=== PATIENT | male | born 1940 | race Native Hawaiian/Other Pacific Islander ===

== ENCOUNTER 2019-08-16 15:53 | Emergency (ER) | payer MEDICARE, OTHER ==
[~2019-08-16] VITALS: Ht 182.9 cm; Wt 70.8 kg
[~2019-08-16 15:53] MED LIST: ACET-822 GT; ACET-868 GT
--- NOTE | 2019-08-16 16:31 | NUR ---
PT BIB EMS FROM NURSING FACILITY S/P WITNESSESD FALL. PT AAOX1, VSS, NO MEDICAL COMPLAINTS AT THIS TIME. DENIES PAIN. CONNECTED TO THE DRUM SANDER SETTER AND POX
[2019-08-16] MEDS ORDERED: MULT-447 PO (16:59)
[2019-08-16] MEDS ORDERED: LATA2.5D7 EACHEYE (16:59)
[2019-08-16] MEDS ORDERED: TAMS-12 PO (16:59)
[2019-08-16] MEDS ORDERED: MAGN400O6 PO (16:59)
[2019-08-16] MEDS ORDERED: ZINC1CAP2 PO (16:59)
[2019-08-16] MEDS ORDERED: FINA5TAB11 PO (16:59)
[2019-08-16] MEDS ORDERED: ASPI-992 PO (16:59)
[2019-08-16] MEDS ORDERED: BENZ0.5T43 PO (16:59)
[2019-08-16] MEDS ORDERED: BISA10SU11 RC (16:59)
[2019-08-16] MEDS ORDERED: RISP2TAB PO (16:59)
[2019-08-16] MEDS ORDERED: OMEP20CA15 PO (16:59)
[2019-08-16] MEDS ORDERED: PALI234D IM (16:59)
[2019-08-16] MEDS ORDERED: NA P133E RC (16:59)
[2019-08-16] MEDS ORDERED: DOCU250C14 PO (16:59)
[2019-08-16] MEDS ORDERED: ZOLP5TAB8 PO (16:59)
[2019-08-16] MEDS ORDERED: LOPE2CAP PO (16:59)
[2019-08-16] MEDS ORDERED: ACET-868 PO (16:59)
[2019-08-16] MEDS ORDERED: ASCO-352 PO (16:59)
[2019-08-16] MEDS ORDERED: MELA3TAB41 PO (16:59)
[2019-08-16] MEDS ORDERED: MAG30ORA PO (16:59)
[2019-08-16] MEDS ORDERED: CARB-93 PO (16:59)
--- NOTE | 2019-08-16 17:33 | NUR ---
PT TAKEN TO CT
--- NOTE | 2019-08-16 18:58 | NUR ---
[facility] [phone]
--- NOTE | 2019-08-16 19:26 | NUR ---
[facility] CALLED [phone] DAGMAR PAGED.
--- NOTE | 2019-08-16 19:45 | NUR ---
[facility] CALLED FOR TRANSPORT. ETA 2100 TRIP# [id number]
--- NOTE | 2019-08-16 20:02 | NUR ---
REPORT GIVEN TO SHANNAN SOLANO APARTMENT COORDINATOR AT [facility]
[2019-08-16 21:21] VITALS: BP 117/67
--- NOTE | 2019-08-16 21:21 | NUR ---
Patient discharged to facility in stable condition. Written and verbal after care instructions given. Patient verbalizes understanding of instruction.
--- NOTE | 2019-08-16 21:21 | NUR ---
REPORT GIVEN TO EMS. PT STABLE FOR TRANSFER
== END 2019-08-16 21:22 ==
LOC: ER 15:55
DX: Q18.9 Congenital malformation of face and neck, unspecified (principal); F03.90 Unspecified dementia, unspecified severity, without behavioral disturbance, psychotic disturbance, mood disturbance, and anxiety; I10 Essential (primary) hypertension; F39 Unspecified mood [affective] disorder; F32.9 Major depressive disorder, single episode, unspecified; F20.9 Schizophrenia, unspecified; F29 Unspecified psychosis not due to a substance or known physiological condition; E53.9 Vitamin B deficiency, unspecified; Z98.890 Other specified postprocedural states; Z79.899 Other long term (current) drug therapy; Z79.82 Long term (current) use of aspirin; W18.39XA Other fall on same level, initial encounter; Y93.89 Activity, other specified; Y92.89 Other specified places as the place of occurrence of the external cause; Y99.8 Other external cause status
CPT/HCPCS: 70450-TC; 72125-TC